=== PATIENT | male | born 1955 | race African-American/Black ===

== ENCOUNTER 2018-10-18 08:38 | Emergency (ER) | payer MEDICAID ==
[~2018-10-18] VITALS: Ht 175.3 cm; Wt 82.0 kg
[2018-10-18] MEDS ORDERED: ONDANSETRON HCL 4MG/2ML INJ IV ONE (10:30)
[2018-10-18] MEDS ORDERED: MORPHINE SULFATE 2 MG/ML CPJ (NOT FOR IM USE) IV ONE (10:30)
[2018-10-18] MEDS ORDERED: MORPHINE SULFATE 10 MG/ML CPJ IV NR (10:30)
[2018-10-18 11:15] LABS: BASOPHILS % 0.7 % (0.0-2.0); HEMATOCRIT. 34.5 % (42.0-52.0); HEMOGLOBIN. 11.3 g/dL (14.0-18.0); LYMPHOCYTES % 9.6 % (20.0-50.0); MEAN CORPUSCULAR HEMOGLOBIN 25.8 pg (28.0-32.0); MEAN CORPUSCULAR VOLUME 78.6 fL (80.0-94.0); MEAN PLATELET VOLUME 8.2 fl (7.4-10.4); MONOCYTES % 14.6 % (2.0-8.0); NEUTROPHILS % 75.1 % (40.0-76.0); PLATELET 242 x1000/uL (130-400); RED BLOOD CELL COUNT 4.39 mill/uL (4.7-6.1); RED CELL DISTRIBUTION WIDTH 13.4 % (11.6-14.6)
[2018-10-18 11:17] LABS: CHLORIDE 96 mEq/L (98-107); PROTHROMBIN TIME 10.1 sec (9.1-11.1)
[2018-10-18 13:21] LABS: CLARITY URINE CLEAR (CLEAR); COLOR URINE DARK YELLOW (YELLOW); KETONES URINE NEGATIVE (NEGATIVE); LEUKOCYTE ESTERASE URINE NEGATIVE (NEGATIVE); NITRITE URINE NEGATIVE (NEGATIVE); OCCULT BLOOD URINE NEGATIVE (NEGATIVE); PROTEIN URINE 2+ (NEGATIVE)
[2018-10-18 13:38] LABS: *AMPHETAMINES SCREEN URINE NEGATIVE (NEGATIVE); *BARBITURATES SCREEN URINE NEGATIVE (NEGATIVE); *BENZODIAZEPINES SCREEN URINE NEGATIVE (NEGATIVE); *COCAINE SCREEN URINE NEGATIVE (NEGATIVE); METHADONE URINE SCREEN NEGATIVE (NEGATIVE)
[2018-10-18 13:39] LABS: CANNABINOID URINE SCREEN PRESUMTIVE POSITIVE (NEGATIVE); OPIATES URINE SCREEN PRESUMTIVE POSITIVE (NEGATIVE); PHENCYCLIDINE URINE SCREEN NEGATIVE (NEGATIVE)
[2018-10-18] MEDS ORDERED: KETOROLAC 30MG/ML VIAL IV ONE (16:00)
[2018-10-18 16:22] VITALS: BP 129/78
== END 2018-10-18 17:11 | disposition home or self-care (01) ==
LOC: ER 08:38
DX: M25.461 Effusion, right knee (principal); M54.9 Dorsalgia, unspecified; I10 Essential (primary) hypertension; R56.9 Unspecified convulsions; Z95.0 Presence of cardiac pacemaker; Z86.19 Personal history of other infectious and parasitic diseases; Z86.73 Personal history of transient ischemic attack (TIA), and cerebral infarction without residual deficits
CPT/HCPCS: 36415; 73562; 74176; 76705; 80053; 80305; 81003; 83690; 85025; 85610; 93971; 96374; 96375; 99284; J1885; J2270; J2405

== ENCOUNTER 2019-03-09 07:57 | Inpatient (IN) | payer MEDICARE, MEDICAID ==
[~2019-03-09] VITALS: Ht 166.4 cm; Wt 68.0 kg
[2019-03-09 09:19] LABS: BASOPHILS % 1.3 % (0.0-2.0); EOSINOPHILS % 0.6 % (0.0-5.0); HEMATOCRIT. 31.6 % (42.0-52.0); HEMOGLOBIN. 10.1 g/dL (14.0-18.0); LYMPHOCYTES % 11.9 % (20.0-50.0); MEAN CORPUSCULAR HEMOGLOBIN 21.8 pg (28.0-32.0); MEAN CORPUSCULAR VOLUME 68.5 fL (80.0-94.0); MONOCYTES % 9.8 % (2.0-8.0); NEUTROPHILS % 76.4 % (40.0-76.0); PLATELET 236 x1000/uL (130-400); RED BLOOD CELL COUNT 4.61 mill/uL (4.7-6.1); RED CELL DISTRIBUTION WIDTH 19.6 % (11.6-14.6)
[2019-03-09 09:26] LABS: CHLORIDE 107 mEq/L (98-107)
[2019-03-09 10:13] LABS: PLATELET ESTIMATE NORMAL
[2019-03-09] MEDS ORDERED: MAGNESIUM/ALUMINUM HYDROXIDE/SIMETHICONE 30ML UDC PO PRN (11:45)
[2019-03-09] MEDS ORDERED: ONDANSETRON HCL 4MG/2ML INJ IV PRN (11:45)
[2019-03-09] MEDS ORDERED: GUAIFENESIN 200MG/10ML SUGAR FREE UDC PO PRN (11:45)
[2019-03-09] MEDS ORDERED: HYDROMORPHONE HCL/PF 2MG/ML CPJ IV PRN (11:45)
[2019-03-09] MEDS ORDERED: HYDROCODONE/ACETAMINOPHEN 5/325MG TABLET PO PRN (11:45)
[2019-03-09] MEDS ORDERED: CLONIDINE 0.1MG TABLET PO PRN (11:45)
[2019-03-09] MEDS ORDERED: LORAZEPAM 2MG/ML CPJ IV PRN (11:45)
[2019-03-09] MEDS ORDERED: IPRATROPIUM/ALBUTEROL 0.5-3(2.5)MG/3ML NEB INH PRN (11:45)
[2019-03-09] MEDS ORDERED: DIPHENHYDRAMINE 50MG/ML VIAL IV PRN (11:45)
[2019-03-09] MEDS ORDERED: DOCUSATE SODIUM 100MG CAPSULE PO PRN (11:45)
[2019-03-09 13:00] VITALS: BP 150/87
[2019-03-09] MEDS: ENOXAPARIN 40MG/0.4ML SYR SUBCUT SCH (13:30)
[2019-03-09] MEDS: ASPIRIN 81MG EC TABLET PO SCH (13:30)
[2019-03-09] MEDS ORDERED: NA PHOS,M-B/NA PHOS,DI-BA ENEMA 118ML PR PRN (13:30)
[2019-03-09 15:44] LABS: CHLORIDE 102 mEq/L (98-107)
[2019-03-09 16:00] VITALS: BP 154/90
[2019-03-09 20:00] VITALS: BP 132/77
[2019-03-10] VITALS: BP 145/79
[2019-03-10 04:00] VITALS: BP 131/80
[2019-03-10 06:15] LABS: BASOPHILS % 1.6 % (0.0-2.0); EOSINOPHILS % 1.2 % (0.0-5.0); HEMATOCRIT. 30.3 % (42.0-52.0); HEMOGLOBIN. 9.9 g/dL (14.0-18.0); LYMPHOCYTES % 22.1 % (20.0-50.0); MEAN CORPUSCULAR HEMOGLOBIN 22.4 pg (28.0-32.0); MEAN CORPUSCULAR VOLUME 68.5 fL (80.0-94.0); MEAN PLATELET VOLUME 8.8 fl (7.4-10.4); MONOCYTES % 11.5 % (2.0-8.0); NEUTROPHILS % 63.6 % (40.0-76.0); PLATELET 218 x1000/uL (130-400); RED BLOOD CELL COUNT 4.42 mill/uL (4.7-6.1); RED CELL DISTRIBUTION WIDTH 20.1 % (11.6-14.6)
[2019-03-10 08:00] VITALS: BP 135/82
[2019-03-10 08:31] LABS: CHLORIDE 102 mEq/L (98-107)
[2019-03-10] MEDS: ENOXAPARIN 40MG/0.4ML SYR SUBCUT SCH (09:00)
[2019-03-10] MEDS: ASPIRIN 81MG EC TABLET PO SCH (09:00)
[2019-03-10 09:09] LABS: T4 FREE 1.02 ng/dL (0.76-1.46)
[2019-03-10 09:13] LABS: CREATINE KINASE 132 IU/L (39-308); LDL CHOLESTEROL 74 mg/dL (5-100)
[2019-03-10 09:14] LABS: CREATINE KINASE MB FRACTION < 1.0 ng/mL (0.5-3.6)
[2019-03-10 09:17] LABS: HDL CHOLESTEROL 53 mg/dL (40-59)
[2019-03-10] MEDS ORDERED: POTASSIUM CHLORIDE 20MEQ TABLET SR PO NR (11:45)
[2019-03-10 12:00] VITALS: BP 129/85
[2019-03-10 16:00] VITALS: BP 141/89
[2019-03-10 20:04] VITALS: BP 141/93
[2019-03-10] MEDS: LEVETIRACETAM 500MG TABLET PO SCH (20:27)
[2019-03-11 00:03] VITALS: BP 150/86
[2019-03-11 04:00] VITALS: BP 141/87
[2019-03-11 06:16] LABS: HEMATOCRIT. 31.7 % (42.0-52.0); HEMOGLOBIN. 10.2 g/dL (14.0-18.0); MEAN CORPUSCULAR HEMOGLOBIN 22.1 pg (28.0-32.0); MEAN CORPUSCULAR VOLUME 69.1 fL (80.0-94.0); MEAN PLATELET VOLUME 8.8 fl (7.4-10.4); PLATELET 214 x1000/uL (130-400); RED CELL DISTRIBUTION WIDTH 19.2 % (11.6-14.6)
[2019-03-11 07:27] LABS: CHLORIDE 103 mEq/L (98-107)
[2019-03-11 08:00] VITALS: BP 137/85
[2019-03-11] MEDS: ASPIRIN 81MG EC TABLET PO SCH (08:51)
[2019-03-11] MEDS: ENOXAPARIN 40MG/0.4ML SYR SUBCUT SCH (08:52)
[2019-03-11] MEDS: LEVETIRACETAM 500MG TABLET PO SCH ×2 (08:52→20:32)
[2019-03-11 12:00] VITALS: BP_SYST 115; BP_SYST 120; BP_SYST 142; BP_DIAS 60; BP_DIAS 72; BP_DIAS 83
[2019-03-11] MEDS: AMLODIPINE 2.5MG TABLET PO SCH ×2 (12:09→20:32)
[2019-03-11 12:51] LABS: PLATELET ESTIMATE NORMAL
[2019-03-11 14:51] LABS: CLARITY URINE CLEAR (CLEAR); COLOR URINE YELLOW (YELLOW); KETONES URINE NEGATIVE (NEGATIVE); LEUKOCYTE ESTERASE URINE NEGATIVE (NEGATIVE); NITRITE URINE NEGATIVE (NEGATIVE); OCCULT BLOOD URINE NEGATIVE (NEGATIVE); PH URINE 6.5 (4.5-8.0); PROTEIN URINE 2+ (NEGATIVE); SPECIFIC GRAVITY URINE 1.019 (1.005-1.030)
[2019-03-11 15:17] LABS: OPIATES URINE SCREEN PRESUMTIVE POSITIVE (NEGATIVE)
[2019-03-11 15:18] LABS: *AMPHETAMINES SCREEN URINE NEGATIVE (NEGATIVE); *BARBITURATES SCREEN URINE NEGATIVE (NEGATIVE); *BENZODIAZEPINES SCREEN URINE NEGATIVE (NEGATIVE); *COCAINE SCREEN URINE NEGATIVE (NEGATIVE); CANNABINOID URINE SCREEN NEGATIVE (NEGATIVE); METHADONE URINE SCREEN NEGATIVE (NEGATIVE); PHENCYCLIDINE URINE SCREEN NEGATIVE (NEGATIVE)
[2019-03-11 20:00] VITALS: BP 145/80
[2019-03-11] MEDS: METOPROLOL TARTRATE 25MG TABLET PO SCH (20:33)
[2019-03-12] VITALS: BP 138/93
[2019-03-12 04:00] VITALS: BP 133/90
[2019-03-12 08:00] VITALS: BP 131/82
[2019-03-12] MEDS: ASPIRIN 81MG EC TABLET PO SCH (08:30)
[2019-03-12] MEDS: AMLODIPINE 2.5MG TABLET PO SCH (08:30)
[2019-03-12] MEDS: LEVETIRACETAM 500MG TABLET PO SCH (08:30)
[2019-03-12] MEDS: METOPROLOL TARTRATE 25MG TABLET PO SCH (08:31)
[2019-03-12] MEDS: ENOXAPARIN 40MG/0.4ML SYR SUBCUT SCH (08:32)
[2019-03-12 12:00] VITALS: BP 131/84
[2019-03-12 17:16] VITALS: BP 131/84
== END 2019-03-12 17:35 | disposition home or self-care (01) | DRG 52 ==
LOC: ER 07:57 → 8WST 10:08 → EDBEDREQ 10:13 → ENRESERV 11:07
PROVIDERS: ADMIT Internal Medicine; ATTEND Internal Medicine
PROC: 4A00X4Z Measurement of Central Nervous Electrical Activity, External Approach (ICD-10-PCS; principal; 2019-03-12)
PROC: 4B02XSZ Measurement of Cardiac Pacemaker, External Approach (ICD-10-PCS; 2019-03-12)
DX: G93.41 Metabolic encephalopathy (principal); I47.2 Ventricular tachycardia; I49.5 Sick sinus syndrome; I50.9 Heart failure, unspecified; I11.0 Hypertensive heart disease with heart failure; G40.409 Other generalized epilepsy and epileptic syndromes, not intractable, without status epilepticus; G90.8 Other disorders of autonomic nervous system; I25.10 Atherosclerotic heart disease of native coronary artery without angina pectoris; I69.351 Hemiplegia and hemiparesis following cerebral infarction affecting right dominant side; Z79.899 Other long term (current) drug therapy; Z95.0 Presence of cardiac pacemaker
CPT/HCPCS: 36415; 71045; 80048; 80061; 80305; 82550; 82553; 83735; 83880; 84439; 84443; 84484; 93005; 93306; 97162; 99285; J1650

== ENCOUNTER 2019-05-23 09:45 | Emergency (ER) | payer MEDICARE, MEDICAID ==
[~2019-05-23] VITALS: Ht 170.2 cm; Wt 80.0 kg
[2019-05-23 10:57] LABS: HEMATOCRIT. 28.4 % (42.0-52.0); HEMOGLOBIN. 9.2 g/dL (14.0-18.0); MEAN CORPUSCULAR HEMOGLOBIN 22.9 pg (28.0-32.0); MEAN CORPUSCULAR VOLUME 70.4 fL (80.0-94.0); MEAN PLATELET VOLUME 8.8 fl (7.4-10.4); PLATELET 270 x1000/uL (130-400); RED BLOOD CELL COUNT 4.03 mill/uL (4.7-6.1); RED CELL DISTRIBUTION WIDTH 21.4 % (11.6-14.6)
[2019-05-23] MEDS ORDERED: ACETAMINOPHEN 325MG TABLET PO ONE (11:00)
[2019-05-23] MEDS ORDERED: IBUPROFEN 800MG TABLET PO ONE (11:00)
[2019-05-23 11:03] LABS: CHLORIDE 97 mEq/L (98-107)
[2019-05-23 11:05] LABS: CLARITY URINE CLEAR (CLEAR); COLOR URINE YELLOW (YELLOW); KETONES URINE NEGATIVE (NEGATIVE); LEUKOCYTE ESTERASE URINE NEGATIVE (NEGATIVE); NITRITE URINE NEGATIVE (NEGATIVE); OCCULT BLOOD URINE NEGATIVE (NEGATIVE); PH URINE 6.5 (4.5-8.0); PROTEIN URINE 2+ (NEGATIVE); SPECIFIC GRAVITY URINE 1.011 (1.005-1.030)
[2019-05-23 12:04] LABS: PLATELET ESTIMATE NORMAL
[2019-05-23] MEDS ORDERED: PREDNISONE 20MG TABLET PO SCH (12:40)
[2019-05-23 13:52] VITALS: BP 132/68
== END 2019-05-23 13:54 | disposition home or self-care (01) ==
LOC: ER 09:45
DX: M10.9 Gout, unspecified (principal); I11.9 Hypertensive heart disease without heart failure; R56.9 Unspecified convulsions; Z95.0 Presence of cardiac pacemaker; Z86.19 Personal history of other infectious and parasitic diseases
CPT/HCPCS: 36415; 71045; 80053; 81003; 85025; 87086; 99284; J7512

== ENCOUNTER 2020-01-08 09:37 | Emergency (ER) | payer MEDICARE, MEDICAID ==
[~2020-01-08] VITALS: Ht 175.3 cm; Wt 74.0 kg
[2020-01-08] MEDS ORDERED: KETOROLAC 60MG/2ML VIAL IM ONE (10:45)
[2020-01-08 11:44] VITALS: BP 140/80
== END 2020-01-08 11:50 | disposition home or self-care (01) ==
LOC: ER 09:37
DX: R07.81 Pleurodynia (principal); M54.9 Dorsalgia, unspecified; M25.511 Pain in right shoulder; M10.9 Gout, unspecified; I11.9 Hypertensive heart disease without heart failure; Z95.0 Presence of cardiac pacemaker
CPT/HCPCS: 96372; 99283; J1885

== ENCOUNTER 2020-02-18 05:10 | Inpatient (IN) | payer MEDICARE, MEDICAID ==
[~2020-02-18] VITALS: Ht 185.4 cm; Wt 79.4 kg
[2020-02-18] MEDS ORDERED: ACETAMINOPHEN 325MG TABLET PO STA (05:19)
[2020-02-18] MEDS ORDERED: LEVETIRACETAM 500MG PREMIX 100 ML IV ONE (06:30)
[2020-02-18 06:50] LABS: BASOPHILS % 0.9 % (0.0-2.0); EOSINOPHILS % 0.2 % (0.0-5.0); HEMATOCRIT. 34.3 % (42.0-52.0); HEMOGLOBIN. 11.2 g/dL (14.0-18.0); LYMPHOCYTES % 14.5 % (20.0-50.0); MEAN CORPUSCULAR HEMOGLOBIN 24.8 pg (28.0-32.0); MEAN CORPUSCULAR VOLUME 75.9 fL (80.0-94.0); MONOCYTES % 11.6 % (2.0-8.0); NEUTROPHILS % 72.8 % (40.0-76.0); PLATELET 177 x1000/uL (130-400); RED BLOOD CELL COUNT 4.52 mill/uL (4.7-6.1); RED CELL DISTRIBUTION WIDTH 16.3 % (11.6-14.6)
[2020-02-18 06:57] LABS: CHLORIDE 108 mEq/L (98-107)
[2020-02-18 07:06] LABS: C REACTIVE PROTEIN QUANT 4.1 mg/L (0.0-3.0)
[2020-02-18 07:09] LABS: CREATINE KINASE 158 IU/L (39-308)
[2020-02-18 07:28] LABS: D-DIMER 1.21 mg/L FEU (<0.50); PROTHROMBIN TIME 10.7 sec (9.6-11.0)
[2020-02-18] MEDS ORDERED: LORAZEPAM 2MG/ML CPJ IV PRN (11:00)
[2020-02-18] MEDS ORDERED: BENZONATATE 100MG CAPSULE PO PRN (11:00)
[2020-02-18] MEDS ORDERED: CEFTRIAXONE 1 G PREMIX 50 ML IV NR (11:45)
[2020-02-18] MEDS: ACETAMINOPHEN 325MG TABLET PO PRN ×2 (15:07→22:08)
[2020-02-18 16:00] VITALS: BP 152/90
[2020-02-18] MEDS ORDERED: AZITHROMYCIN 500 MG TABLET PO NR (16:00)
[2020-02-18] MEDS ORDERED: POTASSIUM CHLORIDE 20MEQ TABLET SR PO NR (16:00)
[2020-02-18] MEDS: THIAMINE HCL 100MG TABLET PO SCH (18:24)
[2020-02-18] MEDS: ENOXAPARIN 40MG/0.4ML SYR SUBCUT SCH (18:27)
[2020-02-18 20:00] VITALS: BP 161/98
[2020-02-18] MEDS: ASCORBIC ACID 500 MG TABLET PO SCH (22:08)
[2020-02-18] MEDS: LEVETIRACETAM 500MG TABLET PO SCH (22:08)
[2020-02-18] MEDS: AMLODIPINE 5MG TABLET PO SCH (22:09)
[2020-02-19] VITALS (7 sets, daily range): BP systolic 134–162; BP diastolic 88–97
[2020-02-19] MEDS: ACETAMINOPHEN 325MG TABLET PO PRN ×4 (04:37→23:19)
[2020-02-19] MEDS: ZINC SULFATE 220 MG ( 50 ) CAPSULE PO SCH (08:34)
[2020-02-19] MEDS: LEVETIRACETAM 500MG TABLET PO SCH ×2 (08:34→21:14)
[2020-02-19] MEDS: ASCORBIC ACID 500 MG TABLET PO SCH ×2 (08:34→21:14)
[2020-02-19] MEDS: THIAMINE HCL 100MG TABLET PO SCH ×2 (08:35→16:36)
[2020-02-19] MEDS: AZITHROMYCIN 250 MG TABLET PO SCH (08:35)
[2020-02-19] MEDS: AMLODIPINE 5MG TABLET PO SCH ×2 (08:50→21:14)
[2020-02-19] MEDS ORDERED: CEFTRIAXONE 1 G PREMIX 50 ML IV SCH (11:00)
[2020-02-19] MEDS ORDERED: LOSARTAN POTASSIUM 50 MG TABLET PO SCH (14:00)
[2020-02-19] MEDS ORDERED: LOSA100T32 MT (15:12)
[2020-02-19] MEDS ORDERED: KEPP500 MT (15:12)
[2020-02-19] MEDS ORDERED: AZIT250T12 MT (15:12)
[2020-02-19] MEDS: ENOXAPARIN 40MG/0.4ML SYR SUBCUT SCH (16:36)
[2020-02-20 04:00] VITALS: BP 140/86
[2020-02-20] MEDS: ACETAMINOPHEN 325MG TABLET PO PRN ×3 (05:26→20:53)
[2020-02-20 08:00] VITALS: BP_SYST 145; BP_SYST 155; BP_DIAS 89; BP_DIAS 92
[2020-02-20] MEDS: THIAMINE HCL 100MG TABLET PO SCH ×2 (10:07→17:31)
[2020-02-20] MEDS: AMLODIPINE 5MG TABLET PO SCH ×2 (10:07→20:53)
[2020-02-20] MEDS: LEVETIRACETAM 500MG TABLET PO SCH ×2 (10:08→20:53)
[2020-02-20] MEDS: LOSARTAN POTASSIUM 50 MG TABLET PO SCH (10:08)
[2020-02-20] MEDS: ASCORBIC ACID 500 MG TABLET PO SCH ×2 (10:09→20:54)
[2020-02-20] MEDS: AZITHROMYCIN 250 MG TABLET PO SCH (10:09)
[2020-02-20] MEDS: ZINC SULFATE 220 MG ( 50 ) CAPSULE PO SCH (10:09)
[2020-02-20] MEDS: CEFTRIAXONE 1 G PREMIX 50 ML IV SCH (10:13)
[2020-02-20 10:29] LABS: BASOPHILS % 0.4 % (0.0-2.0); HEMATOCRIT. 34.9 % (42.0-52.0); HEMOGLOBIN. 11.7 g/dL (14.0-18.0); MEAN CORPUSCULAR VOLUME 74.5 fL (80.0-94.0); MEAN PLATELET VOLUME 9.4 fl (7.4-10.4); MONOCYTES % 8.5 % (2.0-8.0); NEUTROPHILS % 78.1 % (40.0-76.0); PLATELET 183 x1000/uL (130-400); RED BLOOD CELL COUNT 4.68 mill/uL (4.7-6.1); RED CELL DISTRIBUTION WIDTH 16.6 % (11.6-14.6)
[2020-02-20 10:32] LABS: CHLORIDE 102 mEq/L (98-107)
[2020-02-20 12:00] VITALS: BP 155/89
[2020-02-20] MEDS ORDERED: POTASSIUM CHLORIDE 20MEQ TABLET SR PO NR (12:15)
[2020-02-20] MEDS ORDERED: VANCOMYCIN 1500MG in DEXTROSE 5% WATER 250ML IV SCH (14:00)
[2020-02-20] MEDS: COLCHICINE 0.6MG TABLET PO SCH (14:38)
[2020-02-20 16:00] VITALS: BP 159/93
[2020-02-20] MEDS: ENOXAPARIN 40MG/0.4ML SYR SUBCUT SCH (17:31)
[2020-02-20 20:00] VITALS: BP 144/89
[2020-02-21] VITALS: BP 135/84
[2020-02-21] MEDS: VANCOMYCIN 1250MG in DEXTROSE 5% WATER 250ML IV SCH ×2 (02:09→13:09)
[2020-02-21] MEDS: ACETAMINOPHEN 325MG TABLET PO PRN ×3 (03:07→20:34)
[2020-02-21 04:00] VITALS: BP 121/82
[2020-02-21 08:00] VITALS: BP 144/88
[2020-02-21] MEDS: ASCORBIC ACID 500 MG TABLET PO SCH ×2 (09:37→20:34)
[2020-02-21] MEDS: THIAMINE HCL 100MG TABLET PO SCH ×2 (09:38→16:09)
[2020-02-21] MEDS: COLCHICINE 0.6MG TABLET PO SCH (09:38)
[2020-02-21] MEDS: LEVETIRACETAM 500MG TABLET PO SCH ×2 (09:39→20:35)
[2020-02-21] MEDS: AMLODIPINE 5MG TABLET PO SCH ×2 (09:39→20:35)
[2020-02-21] MEDS: ZINC SULFATE 220 MG ( 50 ) CAPSULE PO SCH (09:39)
[2020-02-21] MEDS: AZITHROMYCIN 250 MG TABLET PO SCH (09:39)
[2020-02-21] MEDS: LOSARTAN POTASSIUM 50 MG TABLET PO SCH (09:39)
[2020-02-21] MEDS: CEFTRIAXONE 1 G PREMIX 50 ML IV SCH (10:56)
[2020-02-21 12:00] VITALS: BP 106/81
[2020-02-21 16:00] VITALS: BP 152/95
[2020-02-21] MEDS: ENOXAPARIN 40MG/0.4ML SYR SUBCUT SCH (16:09)
[2020-02-21 18:07] LABS: *AMPHETAMINES SCREEN URINE NEGATIVE (NEGATIVE); CANNABINOID URINE SCREEN PRESUMTIVE POSITIVE (NEGATIVE); OPIATES URINE SCREEN NEGATIVE (NEGATIVE); PHENCYCLIDINE URINE SCREEN NEGATIVE (NEGATIVE)
[2020-02-21 18:12] LABS: METHADONE URINE SCREEN NEGATIVE (NEGATIVE)
[2020-02-21 18:13] LABS: *COCAINE SCREEN URINE NEGATIVE (NEGATIVE)
[2020-02-21 18:14] LABS: *BARBITURATES SCREEN URINE NEGATIVE (NEGATIVE); *BENZODIAZEPINES SCREEN URINE NEGATIVE (NEGATIVE)
[2020-02-21 20:00] VITALS: BP 143/88
[2020-02-22] VITALS: BP 119/79
[2020-02-22 04:00] VITALS: BP 120/69
[2020-02-22 08:00] VITALS: BP 148/91
[2020-02-22 08:41] LABS: CHLORIDE 102 mEq/L (98-107)
[2020-02-22] MEDS ORDERED: VANCOMYCIN 1250MG in DEXTROSE 5% WATER 250ML IV SCH (09:00)
[2020-02-22] MEDS: AMLODIPINE 5MG TABLET PO SCH ×2 (09:10→22:24)
[2020-02-22] MEDS: ZINC SULFATE 220 MG ( 50 ) CAPSULE PO SCH (09:10)
[2020-02-22] MEDS: AZITHROMYCIN 250 MG TABLET PO SCH (09:10)
[2020-02-22] MEDS: ASCORBIC ACID 500 MG TABLET PO SCH ×2 (09:10→22:24)
[2020-02-22] MEDS: COLCHICINE 0.6MG TABLET PO SCH (09:11)
[2020-02-22] MEDS: LEVETIRACETAM 500MG TABLET PO SCH ×2 (09:11→22:24)
[2020-02-22] MEDS: THIAMINE HCL 100MG TABLET PO SCH ×2 (09:11→17:40)
[2020-02-22] MEDS: ACETAMINOPHEN 325MG TABLET PO PRN (09:13)
[2020-02-22] MEDS: LOSARTAN POTASSIUM 50 MG TABLET PO SCH (09:16)
[2020-02-22] MEDS: CEFTRIAXONE 1 G PREMIX 50 ML IV SCH (10:03)
[2020-02-22 12:00] VITALS: BP 137/85
[2020-02-22 16:00] VITALS: BP 153/93
[2020-02-22] MEDS: ENOXAPARIN 40MG/0.4ML SYR SUBCUT SCH (17:40)
[2020-02-22] MEDS ORDERED: IOHEXOL-300 100 ML BOTTLE ONE (17:57)
[2020-02-22 18:16] LABS: HEMATOCRIT. 29.4 % (42.0-52.0); HEMOGLOBIN. 9.8 g/dL (14.0-18.0); MEAN CORPUSCULAR HEMOGLOBIN 25.1 pg (28.0-32.0); MEAN CORPUSCULAR VOLUME 75.4 fL (80.0-94.0); MEAN PLATELET VOLUME 8.8 fl (7.4-10.4); PLATELET 196 x1000/uL (130-400); RED CELL DISTRIBUTION WIDTH 16.3 % (11.6-14.6)
[2020-02-22 19:14] LABS: PLATELET ESTIMATE NORMAL
[2020-02-22 20:00] VITALS: BP 159/92
[2020-02-23] VITALS: BP 163/92
[2020-02-23] MEDS ORDERED: CLONIDINE 0.1MG TABLET PO PRN (01:15)
[2020-02-23 04:00] VITALS: BP 117/77
[2020-02-23 05:01] LABS: CLARITY URINE CLEAR (CLEAR); COLOR URINE YELLOW (YELLOW); KETONES URINE NEGATIVE (NEGATIVE); LEUKOCYTE ESTERASE URINE NEGATIVE (NEGATIVE); NITRITE URINE NEGATIVE (NEGATIVE); OCCULT BLOOD URINE NEGATIVE (NEGATIVE); PH URINE 6.5 (4.5-8.0); PROTEIN URINE 2+ (NEGATIVE); SPECIFIC GRAVITY URINE 1.024 (1.005-1.030)
[2020-02-23 08:00] VITALS: BP 121/87
[2020-02-23] MEDS: THIAMINE HCL 100MG TABLET PO SCH (09:10)
[2020-02-23] MEDS: ZINC SULFATE 220 MG ( 50 ) CAPSULE PO SCH (09:10)
[2020-02-23] MEDS: COLCHICINE 0.6MG TABLET PO SCH (09:11)
[2020-02-23] MEDS: AMLODIPINE 5MG TABLET PO SCH (09:11)
[2020-02-23] MEDS: LEVETIRACETAM 500MG TABLET PO SCH (09:11)
[2020-02-23] MEDS: LOSARTAN POTASSIUM 50 MG TABLET PO SCH (09:11)
[2020-02-23] MEDS: ASCORBIC ACID 500 MG TABLET PO SCH (09:19)
[2020-02-23] MEDS: ACETAMINOPHEN 325MG TABLET PO PRN (09:20)
[2020-02-23] MEDS: CEFTRIAXONE 1 G PREMIX 50 ML IV SCH (11:23)
[2020-02-23] MEDS ORDERED: COLC0.6C3 MT (11:48)
[2020-02-23 12:00] VITALS: BP 131/78
[2020-02-23 12:41] VITALS: BP 111/67
== END 2020-02-23 15:21 | disposition home or self-care (01) | DRG 720 ==
LOC: ER 05:22 → EDBEDREQTM 05:54 → EDBEDREQ 05:54 → EDBEDREQSVC 05:54 → ENRESERV 13:38 → 7WST 15:56 → 6EST 02-19 23:54
PROVIDERS: ADMIT Internal Medicine; ATTEND Internal Medicine
PROC: 4A10X4Z Monitoring of Central Nervous Electrical Activity, External Approach (ICD-10-PCS; principal; 2020-02-23)
DX: A41.9 Sepsis, unspecified organism (principal); J12.9 Viral pneumonia, unspecified; E87.8 Other disorders of electrolyte and fluid balance, not elsewhere classified; I69.30 Unspecified sequelae of cerebral infarction; J44.9 Chronic obstructive pulmonary disease, unspecified; D64.9 Anemia, unspecified; E87.6 Hypokalemia; G40.909 Epilepsy, unspecified, not intractable, without status epilepticus; J06.9 Acute upper respiratory infection, unspecified; M10.9 Gout, unspecified; Z20.828 Contact with and (suspected) exposure to other viral communicable diseases; M94.0 Chondrocostal junction syndrome [Tietze]; J40 Bronchitis, not specified as acute or chronic; R62.7 Adult failure to thrive; D72.810 Lymphocytopenia; D72.819 Decreased white blood cell count, unspecified; I10 Essential (primary) hypertension; R74.0 Nonspecific elevation of levels of transaminase and lactic acid dehydrogenase [LDH]; T14.90XA Injury, unspecified, initial encounter; W18.30XA Fall on same level, unspecified, initial encounter; Y93.89 Activity, other specified; Y92.89 Other specified places as the place of occurrence of the external cause; Y99.8 Other external cause status; Z95.0 Presence of cardiac pacemaker; Z87.891 Personal history of nicotine dependence; Z68.23 Body mass index [BMI] 23.0-23.9, adult
CPT/HCPCS: 36415; 71045; 71260; 73070; 73100; 74177; 76700; 80048; 80053; 80076; 80185; 80202; 80305; 81003; 82542; 82550; 82728; 82962; 83605; 83615; 83880; 84145; 84484; 84550; 85025; 85379; 86140; 86850; 86900; 87077; 87635; 87804; 93005; 93306; 95816; 97116; 97162; 99291; J0696; J1650; J1953; J3370; J7060; Q9967

== ENCOUNTER 2020-07-24 09:23 | Inpatient (IN) | payer MEDICARE, MEDICAID ==
[~2020-07-24] VITALS: Ht 177.8 cm; Wt 71.7 kg
[~2020-07-24 09:23] MED LIST: AZIT250T12 MT; COLC0.6C3 MT; KEPP500 MT; LOSA100T32 MT
[2020-07-24] MEDS ORDERED: LEVETIRACETAM 500MG PREMIX 100 ML IV ONE (10:00)
[2020-07-24 10:09] LABS: BASOPHILS % 2.3 % (0.0-2.0); EOSINOPHILS % 1.3 % (0.0-5.0); HEMOGLOBIN. 12.7 g/dL (14.0-18.0); LYMPHOCYTES % 38.6 % (20.0-50.0); MEAN CORPUSCULAR HEMOGLOBIN 25.9 pg (28.0-32.0); MEAN CORPUSCULAR VOLUME 81.8 fL (80.0-94.0); MEAN PLATELET VOLUME 9.5 fl (7.4-10.4); MONOCYTES % 10.9 % (2.0-8.0); NEUTROPHILS % 46.9 % (40.0-76.0); PLATELET 180 x1000/uL (130-400); RED BLOOD CELL COUNT 4.89 mill/uL (4.7-6.1); RED CELL DISTRIBUTION WIDTH 14.1 % (11.6-14.6)
[2020-07-24 10:12] LABS: CHLORIDE 108 mEq/L (98-107)
[2020-07-24] MEDS ORDERED: SODIUM CHLORIDE 0.9% 1,000 ML IV ONE (10:58)
[2020-07-24] MEDS ORDERED: PHENYTOIN SODIUM EXTENDED 100MG CAPSULE PO ONE (11:00)
[2020-07-24 11:07] LABS: CLARITY URINE CLEAR (CLEAR); COLOR URINE YELLOW (YELLOW); KETONES URINE NEGATIVE (NEGATIVE); LEUKOCYTE ESTERASE URINE NEGATIVE (NEGATIVE); NITRITE URINE NEGATIVE (NEGATIVE); OCCULT BLOOD URINE 1+ (NEGATIVE); PH URINE 5.5 (4.5-8.0); PROTEIN URINE 3+ (NEGATIVE); SPECIFIC GRAVITY URINE 1.016 (1.005-1.030); UROBILINOGEN URINE 0.2 E.U./dL (0.2-1.0)
[2020-07-24 11:14] LABS: ETHANOL BLOOD 13 mg/dL
[2020-07-24 11:27] LABS: *AMPHETAMINES SCREEN URINE NEGATIVE (NEGATIVE); *BARBITURATES SCREEN URINE NEGATIVE (NEGATIVE); *BENZODIAZEPINES SCREEN URINE NEGATIVE (NEGATIVE); *COCAINE SCREEN URINE NEGATIVE (NEGATIVE)
[2020-07-24 11:28] LABS: CANNABINOID URINE SCREEN PRESUMTIVE POSITIVE (NEGATIVE); METHADONE URINE SCREEN NEGATIVE (NEGATIVE); OPIATES URINE SCREEN NEGATIVE (NEGATIVE); PHENCYCLIDINE URINE SCREEN NEGATIVE (NEGATIVE)
[2020-07-24] MEDS ORDERED: AZITHROMYCIN 500 MG in DEXT 5% WATER 250 ML IV ONE (12:00)
[2020-07-24] MEDS ORDERED: CEFTRIAXONE 1 G PREMIX 50 ML IV ONE (12:00)
[2020-07-24] MEDS ORDERED: SODIUM CHLORIDE 0.9% 1000ML BAG (SEPSIS BOLUS) IV ONE (12:00)
[2020-07-24 13:42] LABS: BG BASE EXCESS -9.2 mmol/L (-2.0-2.0); BG CARBOXYHEMOGLOBIN 0.6 % (0.5-1.5); BG DEOXYHEMOGLOBIN 2.6 % (0.0-5.0); BG FRACTION INSPIRED OXYGEN 21; BG HCO3 ACT 14.8 mmol/L (22.0-26.0); BG METHEMOGLOBIN 0.2 % (0.0-1.5); BG OXYGEN SATURATION 97.4 % (92.0-98.5); BG OXYHEMOGLOBIN 96.6 % (94.0-97.0); BG PCO2 26.9 mmHg (35.0-45.0); BG PH 7.358 (7.350-7.450); BG PO2 102.1 mmHg (75.0-100.0); BG SAMPLE SITE RIGHT RADIAL; BG TOTAL HEMOGLOBIN 11.9 g/dL (12.0-18.0); BG VENT MODE ROOM AIR
[2020-07-24 14:30] VITALS: BP 177/89
[2020-07-24 14:58] VITALS: BP 177/89
[2020-07-24] MEDS ORDERED: LORAZEPAM 2MG/ML CPJ IV PRN ×2 (15:00→15:15)
[2020-07-24 16:00] VITALS: BP 170/85
[2020-07-24] MEDS: CLONIDINE 0.1MG TABLET PO PRN (16:25)
[2020-07-24] MEDS: LORAZEPAM 2MG/ML CPJ IV PRN (16:26)
[2020-07-24] MEDS ORDERED: ACETAMINOPHEN 325MG TABLET PO PRN (19:30)
[2020-07-24] MEDS ORDERED: MAGNESIUM/ALUMINUM HYDROXIDE/SIMETHICONE 30ML UDC PO PRN (19:30)
[2020-07-24] MEDS ORDERED: DOCUSATE SODIUM 100MG CAPSULE PO PRN (19:30)
[2020-07-24] MEDS ORDERED: ONDANSETRON HCL 4MG/2ML INJ IV PRN (19:30)
[2020-07-24 20:00] VITALS: BP 139/97
[2020-07-24] MEDS: ENOXAPARIN 40MG/0.4ML SYR SUBCUT SCH (21:01)
[2020-07-24] MEDS: SODIUM CHLORIDE 0.9% 1,000 ML IV SCH (21:01)
[2020-07-24] MEDS: LEVETIRACETAM 500MG/5ML CUP PO SCH (21:01)
[2020-07-24 21:51] LABS: CREATINE KINASE 202 IU/L (39-308)
[2020-07-24 23:08] LABS: BG BASE EXCESS -7.6 mmol/L (-2.0-2.0); BG CARBOXYHEMOGLOBIN 0.5 % (0.5-1.5); BG DEOXYHEMOGLOBIN 3.9 % (0.0-5.0); BG FRACTION INSPIRED OXYGEN 21; BG HCO3 ACT 16.8 mmol/L (22.0-26.0); BG METHEMOGLOBIN 0.2 % (0.0-1.5); BG OXYGEN SATURATION 96.1 % (92.0-98.5); BG OXYHEMOGLOBIN 95.4 % (94.0-97.0); BG PCO2 30.3 mmHg (35.0-45.0); BG PH 7.361 (7.350-7.450); BG PO2 90.3 mmHg (75.0-100.0); BG VENT MODE ROOM AIR
[2020-07-25] VITALS: BP 152/82
[2020-07-25 04:00] VITALS: BP 164/90
[2020-07-25] MEDS: CLONIDINE 0.1MG TABLET PO PRN (04:08)
[2020-07-25 07:46] LABS: BASOPHILS % 0.9 % (0.0-2.0); HEMATOCRIT. 33.1 % (42.0-52.0); HEMOGLOBIN. 10.7 g/dL (14.0-18.0); LYMPHOCYTES % 31.6 % (20.0-50.0); MEAN CORPUSCULAR HEMOGLOBIN 25.5 pg (28.0-32.0); MEAN CORPUSCULAR VOLUME 78.7 fL (80.0-94.0); MEAN PLATELET VOLUME 9.6 fl (7.4-10.4); MONOCYTES % 12.6 % (2.0-8.0); NEUTROPHILS % 53.9 % (40.0-76.0); PLATELET 111 x1000/uL (130-400); RED BLOOD CELL COUNT 4.21 mill/uL (4.7-6.1)
[2020-07-25 08:00] VITALS: BP 150/113
[2020-07-25 08:10] LABS: CHLORIDE 112 mEq/L (98-107)
[2020-07-25 08:17] LABS: PHOSPHORUS 2.3 mg/dL (2.5-4.9)
[2020-07-25 08:18] LABS: HDL CHOLESTEROL 38 mg/dL (40-59); LDL CHOLESTEROL 42 mg/dL (5-100)
[2020-07-25 08:19] LABS: CREATINE KINASE 189 IU/L (39-308); T4 FREE 0.97 ng/dL (0.76-1.46)
[2020-07-25] MEDS: PANTOPRAZOLE SODIUM 40 MG/VIAL IV SCH (08:42)
[2020-07-25] MEDS: SODIUM CHLORIDE 0.9% 1,000 ML IV SCH ×2 (08:42→22:25)
[2020-07-25] MEDS: MULTIVITAMINS,THER W-MINERALS TABLET PO SCH (08:43)
[2020-07-25] MEDS ORDERED: POTASSIUM CHLORIDE 20MEQ/PACKET PO NR (08:45)
[2020-07-25] MEDS: LEVETIRACETAM 500MG/5ML CUP PO SCH ×2 (08:47→21:22)
[2020-07-25 12:00] VITALS: BP 128/77
[2020-07-25] MEDS ORDERED: MAGNESIUM 2 G PREMIX 50 ML IV NR (13:00)
[2020-07-25] MEDS ORDERED: POTASSIUM PHOS,M-BASIC-D-BASIC 15 MMOL in DEXT 5% WATER 245 ML IV NR (13:00)
[2020-07-25] MEDS: PHENYTOIN SODIUM EXTENDED 100MG CAPSULE PO SCH ×2 (14:12→21:22)
[2020-07-25 16:00] VITALS: BP 153/93
[2020-07-25] MEDS ORDERED: PHENYTOIN SODIUM EXTENDED 100MG CAPSULE PO NR (16:15)
[2020-07-25 18:34] LABS: CREATINE KINASE 180 IU/L (39-308)
[2020-07-25 20:00] VITALS: BP 155/95
[2020-07-25] MEDS: ENOXAPARIN 40MG/0.4ML SYR SUBCUT SCH (21:22)
[2020-07-26] VITALS: BP 150/90
[2020-07-26] MEDS: LORAZEPAM 2MG/ML CPJ IV PRN ×2 (00:17→21:07)
[2020-07-26 04:00] VITALS: BP_SYST 149; BP_DIAS 84; BP_DIAS 89
[2020-07-26] MEDS: PHENYTOIN SODIUM EXTENDED 100MG CAPSULE PO SCH ×3 (06:13→21:07)
[2020-07-26 06:35] LABS: EOSINOPHILS % 1.5 % (0.0-5.0); HEMATOCRIT. 31.9 % (42.0-52.0); HEMOGLOBIN. 10.6 g/dL (14.0-18.0); LYMPHOCYTES % 32.9 % (20.0-50.0); MEAN PLATELET VOLUME 9.5 fl (7.4-10.4); MONOCYTES % 11.7 % (2.0-8.0); NEUTROPHILS % 52.9 % (40.0-76.0); PLATELET 107 x1000/uL (130-400); RED BLOOD CELL COUNT 4.09 mill/uL (4.7-6.1); RED CELL DISTRIBUTION WIDTH 13.9 % (11.6-14.6)
[2020-07-26 06:39] LABS: CHLORIDE 110 mEq/L (98-107)
[2020-07-26 06:50] LABS: PHOSPHORUS 2.3 mg/dL (2.5-4.9)
[2020-07-26 08:00] VITALS: BP 93/61
[2020-07-26] MEDS: LEVETIRACETAM 500MG/5ML CUP PO SCH ×2 (08:15→21:09)
[2020-07-26] MEDS: MULTIVITAMINS,THER W-MINERALS TABLET PO SCH (08:15)
[2020-07-26] MEDS: PANTOPRAZOLE SODIUM 40 MG/VIAL IV SCH (08:15)
[2020-07-26] MEDS: CLONIDINE 0.1MG TABLET PO PRN (08:25)
[2020-07-26] MEDS ORDERED: POTASSIUM CHLORIDE 20MEQ/PACKET PO SCH (09:15)
[2020-07-26] MEDS ORDERED: SODIUM PHOS,M-BASIC-D-BASIC 20 MM in DEXT 5% WATER 243.3333 ML IV SCH (11:00)
[2020-07-26] MEDS ORDERED: MAGNESIUM 4 G PREMIX 100 ML IV SCH (11:00)
[2020-07-26 12:00] VITALS: BP 130/66
[2020-07-26] MEDS: SODIUM CHLORIDE 0.9% 1,000 ML IV SCH (13:14)
[2020-07-26] MEDS ORDERED: POTASSIUM CHLORIDE 20MEQ TABLET SR PO NR (14:00)
[2020-07-26 16:00] VITALS: BP 126/60
[2020-07-26 20:00] VITALS: BP 174/86
[2020-07-26] MEDS: ENOXAPARIN 40MG/0.4ML SYR SUBCUT SCH (21:09)
[2020-07-27] VITALS: BP 168/84
[2020-07-27] MEDS: SODIUM CHLORIDE 0.9% 1,000 ML IV SCH (01:36)
[2020-07-27 04:00] VITALS: BP 164/86
[2020-07-27] MEDS: CLONIDINE 0.1MG TABLET PO PRN (05:34)
[2020-07-27] MEDS: PHENYTOIN SODIUM EXTENDED 100MG CAPSULE PO SCH ×3 (05:34→21:23)
[2020-07-27 06:14] LABS: CHLORIDE 109 mEq/L (98-107)
[2020-07-27 06:22] LABS: PHOSPHORUS 3.2 mg/dL (2.5-4.9)
[2020-07-27 06:52] LABS: BASOPHILS % 0.7 % (0.0-2.0); EOSINOPHILS % 1.3 % (0.0-5.0); HEMOGLOBIN. 10.6 g/dL (14.0-18.0); LYMPHOCYTES % 19.6 % (20.0-50.0); MEAN CORPUSCULAR HEMOGLOBIN 26.2 pg (28.0-32.0); MEAN CORPUSCULAR VOLUME 79.1 fL (80.0-94.0); MONOCYTES % 13.5 % (2.0-8.0); NEUTROPHILS % 64.9 % (40.0-76.0); PLATELET 96 x1000/uL (130-400); RED BLOOD CELL COUNT 4.05 mill/uL (4.7-6.1); RED CELL DISTRIBUTION WIDTH 13.6 % (11.6-14.6)
[2020-07-27 08:00] VITALS: BP 158/99
[2020-07-27] MEDS: LEVETIRACETAM 500MG/5ML CUP PO SCH ×2 (08:19→21:23)
[2020-07-27] MEDS: MULTIVITAMINS,THER W-MINERALS TABLET PO SCH (08:19)
[2020-07-27] MEDS: PANTOPRAZOLE SODIUM 40 MG/VIAL IV SCH (08:19)
[2020-07-27] MEDS: AMLODIPINE 2.5MG TABLET PO SCH (11:13)
[2020-07-27] MEDS: HYDROCODONE/ACETAMINOPHEN 5/325MG TABLET PO PRN ×2 (11:23→18:38)
[2020-07-27 12:00] VITALS: BP_SYST 142; BP_SYST 95; BP_DIAS 51; BP_DIAS 80
[2020-07-27 16:00] VITALS: BP 161/91
[2020-07-27 20:00] VITALS: BP 143/93
[2020-07-27] MEDS: ENOXAPARIN 40MG/0.4ML SYR SUBCUT SCH (21:37)
[2020-07-28] VITALS: BP 144/84
[2020-07-28 04:00] VITALS: BP 155/98
[2020-07-28] MEDS: PHENYTOIN SODIUM EXTENDED 100MG CAPSULE PO SCH ×2 (06:04→14:02)
[2020-07-28 06:39] LABS: BASOPHILS % 0.7 % (0.0-2.0); EOSINOPHILS % 1.6 % (0.0-5.0); HEMATOCRIT. 32.7 % (42.0-52.0); HEMOGLOBIN. 10.9 g/dL (14.0-18.0); LYMPHOCYTES % 22.3 % (20.0-50.0); MEAN CORPUSCULAR HEMOGLOBIN 25.9 pg (28.0-32.0); MONOCYTES % 13.6 % (2.0-8.0); NEUTROPHILS % 61.8 % (40.0-76.0); PLATELET 115 x1000/uL (130-400); RED BLOOD CELL COUNT 4.19 mill/uL (4.7-6.1); RED CELL DISTRIBUTION WIDTH 13.6 % (11.6-14.6)
[2020-07-28 06:41] LABS: CHLORIDE 107 mEq/L (98-107)
[2020-07-28] MEDS: HYDROCODONE/ACETAMINOPHEN 5/325MG TABLET PO PRN (07:19)
[2020-07-28 08:10] VITALS: BP 180/113
[2020-07-28] MEDS: PANTOPRAZOLE SODIUM 40 MG/VIAL IV SCH (08:45)
[2020-07-28] MEDS: MULTIVITAMINS,THER W-MINERALS TABLET PO SCH (08:45)
[2020-07-28] MEDS: LEVETIRACETAM 500MG/5ML CUP PO SCH (08:45)
[2020-07-28] MEDS: AMLODIPINE 2.5MG TABLET PO SCH (08:45)
[2020-07-28 12:00] VITALS: BP 165/105
[2020-07-28 16:12] VITALS: BP 156/105
[2020-07-28] MEDS ORDERED: HYDR-4001 MT (17:05)
[2020-07-28] MEDS ORDERED: AMLO2.5T45 PO (17:05)
[2020-07-28] MEDS ORDERED: PHEN100C4 PO (17:05)
[2020-07-28 17:09] VITALS: BP 156/105
== END 2020-07-28 18:58 | disposition home or self-care (01) | DRG 58 ==
LOC: ER 09:23 → 6WST 12:03 → ENRESERV 12:38
PROVIDERS: ADMIT Internal Medicine; ATTEND Internal Medicine
DX: I69.398 Other sequelae of cerebral infarction (principal); G40.909 Epilepsy, unspecified, not intractable, without status epilepticus; E87.2 Acidosis; I10 Essential (primary) hypertension; I25.10 Atherosclerotic heart disease of native coronary artery without angina pectoris; Y90.0 Blood alcohol level of less than 20 mg/100 ml; E83.39 Other disorders of phosphorus metabolism; E83.42 Hypomagnesemia; B19.20 Unspecified viral hepatitis C without hepatic coma; F12.90 Cannabis use, unspecified, uncomplicated; I69.314 Frontal lobe and executive function deficit following cerebral infarction; Z95.0 Presence of cardiac pacemaker; Z91.19 Patient's noncompliance with other medical treatment and regimen; Z79.2 Long term (current) use of antibiotics; Z79.899 Other long term (current) drug therapy; N17.0 Acute kidney failure with tubular necrosis
CPT/HCPCS: 36415; 36600; 71045; 73502; 76770; 80048; 80053; 80061; 80185; 80305; 80307; 80320; 80329; 81003; 82375; 82550; 82805; 83605; 83735; 84100; 84439; 84484; 85025; 93005; 93306; 93970; 95816; 96365; 97116; 97162; 99291; C9113; J0456; J0696; J1650; J1953; J2060; J3475; J3490; J7030; J7060; G0480

== ENCOUNTER 2021-02-03 15:24 | Emergency (ER) | payer MEDICARE, OTHER ==
[~2021-02-03] VITALS: Ht 172.7 cm; Wt 78.0 kg
[~2021-02-03 15:24] MED LIST changes: +AMLO2.5T45 PO; -AZIT250T12 MT; +HYDR-4001 MT; -LOSA100T32 MT; +PHEN100C4 PO
[2021-02-03 16:09] LABS: BASOPHILS % 1.9 % (0.0-2.0); HEMATOCRIT. 34.4 % (42.0-52.0); HEMOGLOBIN. 11.2 g/dL (14.0-18.0); LYMPHOCYTES % 13.7 % (20.0-50.0); MEAN CORPUSCULAR HEMOGLOBIN 25.2 pg (28.0-32.0); MEAN CORPUSCULAR VOLUME 77.6 fL (80.0-94.0); MEAN PLATELET VOLUME 7.9 fl (7.4-10.4); MONOCYTES % 13.2 % (2.0-8.0); NEUTROPHILS % 70.2 % (40.0-76.0); PLATELET 167 x1000/uL (130-400); RED BLOOD CELL COUNT 4.44 mill/uL (4.7-6.1); RED CELL DISTRIBUTION WIDTH 14.7 % (11.6-14.6)
[2021-02-03 16:15] LABS: CHLORIDE 112 mEq/L (98-107)
[2021-02-03] MEDS ORDERED: SODIUM CHLORIDE 0.9% 1,000 ML IV ONE (16:45)
[2021-02-03 20:00] LABS: CLARITY URINE CLEAR (CLEAR); COLOR URINE YELLOW (YELLOW); KETONES URINE NEGATIVE (NEGATIVE); LEUKOCYTE ESTERASE URINE NEGATIVE (NEGATIVE); NITRITE URINE NEGATIVE (NEGATIVE); OCCULT BLOOD URINE NEGATIVE (NEGATIVE); PH URINE 6.5 (4.5-8.0); PROTEIN URINE 1+ (NEGATIVE); SPECIFIC GRAVITY URINE 1.019 (1.005-1.030); UROBILINOGEN URINE 0.2 E.U./dL (0.2-1.0)
[2021-02-03] MEDS ORDERED: ACETAMINOPHEN 325MG TABLET PO ONE (20:00)
[2021-02-03 20:43] VITALS: BP 122/96
== END 2021-02-03 20:53 | disposition home or self-care (01) ==
LOC: ER 15:24
DX: R53.1 Weakness (principal); E86.0 Dehydration; I10 Essential (primary) hypertension; Z98.890 Other specified postprocedural states; Z86.59 Personal history of other mental and behavioral disorders
CPT/HCPCS: 36415; 80053; 81003; 84484; 85025; 93005; 99285; J7030; Z7610

== ENCOUNTER 2021-06-08 10:04 | Inpatient (IN) | payer MEDICARE, OTHER ==
[~2021-06-08] VITALS: Ht 165.1 cm; Wt 60.8 kg
[2021-06-08] MEDS ORDERED: SODIUM CHLORIDE 0.9% 1000ML BAG (SEPSIS BOLUS) IV ONE (10:45)
[2021-06-08 11:57] LABS: BASOPHILS % 1.1 % (0.0-2.0); EOSINOPHILS % 0.5 % (0.0-5.0); HEMATOCRIT. 38.6 % (42.0-52.0); HEMOGLOBIN. 12.5 g/dL (14.0-18.0); LYMPHOCYTES % 22.9 % (20.0-50.0); MEAN CORPUSCULAR HEMOGLOBIN 24.9 pg (28.0-32.0); MEAN CORPUSCULAR VOLUME 77.1 fL (80.0-94.0); MEAN PLATELET VOLUME 8.8 fl (7.4-10.4); MONOCYTES % 12.1 % (2.0-8.0); NEUTROPHILS % 63.4 % (40.0-76.0); PLATELET 164 x1000/uL (130-400); RED CELL DISTRIBUTION WIDTH 14.6 % (11.6-14.6)
[2021-06-08 12:04] LABS: CHLORIDE 112 mEq/L (98-107)
[2021-06-08 12:07] LABS: INR 1.1; PROTHROMBIN TIME 11.4 sec (9.6-11.0)
[2021-06-08] MEDS ORDERED: PIPERACILLIN/TAZ 3.375G PREMIX 50 ML IV ONE (12:30)
[2021-06-08] MEDS ORDERED: VANCOMYCIN 1 G PREMIX 200 ML IV ONE (12:30)
[2021-06-08 14:21] LABS: CLARITY URINE CLEAR (CLEAR); COLOR URINE YELLOW (YELLOW); KETONES URINE NEGATIVE (NEGATIVE); LEUKOCYTE ESTERASE URINE NEGATIVE (NEGATIVE); NITRITE URINE NEGATIVE (NEGATIVE); OCCULT BLOOD URINE NEGATIVE (NEGATIVE); PROTEIN URINE 1+ (NEGATIVE); SPECIFIC GRAVITY URINE 1.015 (1.005-1.030); UROBILINOGEN URINE 0.2 E.U./dL (0.2-1.0)
[2021-06-08] MEDS ORDERED: ONDANSETRON HCL 4MG/2ML INJ IV PRN (15:45)
[2021-06-08] MEDS ORDERED: LORAZEPAM 0.5MG TABLET PO PRN (15:45)
[2021-06-08] MEDS ORDERED: IPRATROPIUM/ALBUTEROL 0.5-3(2.5)MG/3ML NEB HHN PRN (15:45)
[2021-06-08] MEDS ORDERED: DOCUSATE SODIUM 100MG CAPSULE PO PRN (15:45)
[2021-06-08] MEDS: LEVETIRACETAM 500MG TABLET PO SCH ×2 (16:00→16:25)
[2021-06-08] MEDS: SODIUM CHLORIDE 0.9% 1,000 ML IV SCH (16:25)
[2021-06-08] MEDS ORDERED: PHENYTOIN SODIUM 300MG in SODIUM CHLORIDE 0.9% 50ML IV NR (19:00)
[2021-06-08] MEDS ORDERED: PHENYTOIN SODIUM EXTENDED 100MG CAPSULE PO SCH (22:00)
[2021-06-08] MEDS ORDERED: PHENYTOIN SODIUM 300MG in SODIUM CHLORIDE 0.9% 50ML IV SCH (23:30)
[2021-06-09 02:22] VITALS: BP 125/90
[2021-06-09 04:00] VITALS: BP 117/82
[2021-06-09] MEDS ORDERED: PHENYTOIN SODIUM 300MG in SODIUM CHLORIDE 0.9% 50ML IV SCH (05:00)
[2021-06-09 06:08] LABS: BASOPHILS % 0.8 % (0.0-2.0); HEMATOCRIT. 35.6 % (42.0-52.0); HEMOGLOBIN. 11.5 g/dL (14.0-18.0); LYMPHOCYTES % 24.6 % (20.0-50.0); MEAN CORPUSCULAR HEMOGLOBIN 24.6 pg (28.0-32.0); MEAN CORPUSCULAR VOLUME 75.7 fL (80.0-94.0); MEAN PLATELET VOLUME 8.6 fl (7.4-10.4); MONOCYTES % 8.9 % (2.0-8.0); NEUTROPHILS % 64.7 % (40.0-76.0); PLATELET 190 x1000/uL (130-400); RED CELL DISTRIBUTION WIDTH 14.6 % (11.6-14.6)
[2021-06-09 06:10] LABS: CHLORIDE 116 mEq/L (98-107)
[2021-06-09 08:00] VITALS: BP 132/90
[2021-06-09] MEDS ORDERED: POTASSIUM CHLORIDE 20MEQ TABLET SR PO SCH (08:15)
[2021-06-09] MEDS: LEVETIRACETAM 500MG TABLET PO SCH ×2 (09:49→20:34)
[2021-06-09] MEDS ORDERED: KCL 20MEQ/100ML PREMIX 100 ML IV SCH (10:00)
[2021-06-09] MEDS ORDERED: MAGNESIUM 4 G PREMIX 100 ML IV SCH (10:00)
[2021-06-09 12:00] VITALS: BP 133/87
[2021-06-09] MEDS: SODIUM CHLORIDE 0.9% 1,000 ML IV SCH (13:03)
[2021-06-09] MEDS ORDERED: POTASSIUM CHLORIDE 20MEQ TABLET SR PO NR (13:45)
[2021-06-09] MEDS ORDERED: NALOXONE HCL 0.4MG/ML VIAL IV PRN (13:45)
[2021-06-09 16:00] VITALS: BP 134/91
[2021-06-09 20:00] VITALS: BP 140/91
[2021-06-10] VITALS: BP 136/88
[2021-06-10 04:00] VITALS: BP 127/93
[2021-06-10] MEDS: SODIUM CHLORIDE 0.9% 1,000 ML IV SCH (08:18)
[2021-06-10] MEDS: LEVETIRACETAM 500MG TABLET PO SCH ×2 (08:18→20:30)
[2021-06-10 09:10] VITALS: BP_SYST 115; BP_SYST 119; BP_SYST 120; BP_DIAS 79; BP_DIAS 81; BP_DIAS 85
[2021-06-10 12:00] VITALS: BP 114/86
[2021-06-10 16:00] VITALS: BP 139/93
[2021-06-10 16:57] LABS: CHLORIDE 113 mEq/L (98-107)
[2021-06-10 20:42] VITALS: BP 137/85
[2021-06-11 00:20] VITALS: BP 126/84
[2021-06-11 04:00] VITALS: BP 128/86
[2021-06-11] MEDS: SODIUM CHLORIDE 0.9% 1,000 ML IV SCH (04:20)
[2021-06-11 08:00] VITALS: BP 121/96
[2021-06-11] MEDS: LEVETIRACETAM 500MG TABLET PO SCH ×2 (08:31→20:27)
[2021-06-11 10:15] LABS: CHLORIDE 114 mEq/L (98-107)
[2021-06-11 12:00] VITALS: BP 118/81
[2021-06-11] MEDS ORDERED: POTASSIUM CHLORIDE 20MEQ TABLET SR PO SCH (13:15)
[2021-06-11 16:00] VITALS: BP 148/91
[2021-06-11 20:00] VITALS: BP 147/95
[2021-06-12] VITALS: BP 131/87
[2021-06-12 04:00] VITALS: BP 129/85
[2021-06-12] MEDS: LEVETIRACETAM 500MG TABLET PO SCH ×2 (08:48→21:10)
[2021-06-12 12:00] VITALS: BP 117/91
[2021-06-12 16:00] VITALS: BP 125/88
[2021-06-12 20:00] VITALS: BP 124/77
[2021-06-13] VITALS: BP 128/82
[2021-06-13 04:00] VITALS: BP 117/79
[2021-06-13] MEDS: HYDROCODONE/ACETAMINOPHEN 5/325MG TABLET PO PRN ×2 (04:39→08:58)
[2021-06-13 08:00] VITALS: BP 125/81
[2021-06-13] MEDS: LEVETIRACETAM 500MG TABLET PO SCH ×2 (08:58→20:21)
[2021-06-13 09:45] LABS: BASOPHILS % 0.4 % (0.0-2.0); EOSINOPHILS % 0.7 % (0.0-5.0); HEMATOCRIT. 33.1 % (42.0-52.0); HEMOGLOBIN. 10.9 g/dL (14.0-18.0); LYMPHOCYTES % 12.8 % (20.0-50.0); MEAN CORPUSCULAR HEMOGLOBIN 25.3 pg (28.0-32.0); MEAN CORPUSCULAR VOLUME 76.9 fL (80.0-94.0); MEAN PLATELET VOLUME 8.6 fl (7.4-10.4); MONOCYTES % 9.1 % (2.0-8.0); PLATELET 200 x1000/uL (130-400); RED BLOOD CELL COUNT 4.31 mill/uL (4.7-6.1); RED CELL DISTRIBUTION WIDTH 14.5 % (11.6-14.6)
[2021-06-13 09:55] LABS: CHLORIDE 108 mEq/L (98-107)
[2021-06-13] MEDS: ACETAMINOPHEN 325MG TABLET PO PRN ×2 (11:33→18:56)
[2021-06-13 11:49] VITALS: BP 157/95
[2021-06-13] MEDS ORDERED: POTASSIUM CHLORIDE 20MEQ TABLET SR PO NR (14:15)
[2021-06-13 16:00] VITALS: BP 131/85
[2021-06-13 20:00] VITALS: BP 138/82
[2021-06-14] VITALS: BP 134/77
[2021-06-14 04:00] VITALS: BP 144/81
[2021-06-14] MEDS: POTASSIUM CHLORIDE 20MEQ TABLET SR PO SCH (07:55)
[2021-06-14] MEDS: LEVETIRACETAM 500MG TABLET PO SCH ×2 (07:55→20:35)
[2021-06-14 08:00] VITALS: BP 120/74
[2021-06-14] MEDS: ACETAMINOPHEN 325MG TABLET PO PRN ×3 (08:02→20:35)
[2021-06-14 12:00] VITALS: BP 152/89
[2021-06-14 16:00] VITALS: BP 160/87
[2021-06-14 20:00] VITALS: BP 147/82
[2021-06-15] VITALS: BP 154/77
[2021-06-15 04:00] VITALS: BP 132/73
[2021-06-15 08:00] VITALS: BP 140/81
[2021-06-15] MEDS: LEVETIRACETAM 500MG TABLET PO SCH ×2 (08:35→20:47)
[2021-06-15] MEDS: POTASSIUM CHLORIDE 20MEQ TABLET SR PO SCH (08:35)
[2021-06-15] MEDS: ACETAMINOPHEN 325MG TABLET PO PRN ×2 (08:43→20:47)
[2021-06-15 12:00] VITALS: BP 114/76
[2021-06-15 16:00] VITALS: BP 120/66
[2021-06-15 20:00] VITALS: BP 121/64
[2021-06-16] VITALS: BP 117/81
[2021-06-16 04:00] VITALS: BP 124/72
[2021-06-16 08:00] VITALS: BP 142/84
[2021-06-16] MEDS: LEVETIRACETAM 500MG TABLET PO SCH ×2 (08:21→20:37)
[2021-06-16] MEDS: POTASSIUM CHLORIDE 20MEQ TABLET SR PO SCH (08:21)
[2021-06-16] MEDS: ACETAMINOPHEN 325MG TABLET PO PRN ×2 (08:22→20:44)
[2021-06-16 12:00] VITALS: BP 122/72
[2021-06-16 16:00] VITALS: BP 120/65
[2021-06-16 20:00] VITALS: BP 156/94
[2021-06-17 02:13] VITALS: BP 168/95
[2021-06-17] MEDS: ACETAMINOPHEN 325MG TABLET PO PRN ×3 (03:03→15:09)
[2021-06-17] MEDS: CLONIDINE 0.1MG TABLET PO PRN (03:04)
[2021-06-17 04:38] VITALS: BP 131/82
[2021-06-17] MEDS ORDERED: NALOXONE HCL 0.4MG/ML VIAL IV PRN (05:30)
[2021-06-17] MEDS: POTASSIUM CHLORIDE 20MEQ TABLET SR PO SCH (09:29)
[2021-06-17] MEDS: LEVETIRACETAM 500MG TABLET PO SCH ×2 (09:31→21:13)
[2021-06-17] MEDS: HYDROCODONE/ACETAMINOPHEN 5/325MG TABLET PO PRN ×3 (09:36→22:42)
[2021-06-17 20:54] VITALS: BP 114/79
[2021-06-18 04:00] VITALS: BP 140/91
[2021-06-18] MEDS: HYDROCODONE/ACETAMINOPHEN 5/325MG TABLET PO PRN ×3 (06:13→18:36)
[2021-06-18 08:00] VITALS: BP 133/83
[2021-06-18] MEDS: LEVETIRACETAM 500MG TABLET PO SCH ×2 (09:12→21:18)
[2021-06-18] MEDS: POTASSIUM CHLORIDE 20MEQ TABLET SR PO SCH (09:13)
[2021-06-18 12:00] VITALS: BP 149/81
[2021-06-18 16:00] VITALS: BP 151/92
[2021-06-18 20:00] VITALS: BP 132/85
[2021-06-19] VITALS: BP 136/74
[2021-06-19] MEDS: HYDROCODONE/ACETAMINOPHEN 5/325MG TABLET PO PRN ×3 (01:16→16:44)
[2021-06-19 04:00] VITALS: BP 144/93
[2021-06-19] MEDS: CLONIDINE 0.1MG TABLET PO PRN (06:45)
[2021-06-19 08:00] VITALS: BP 159/98
[2021-06-19] MEDS: POTASSIUM CHLORIDE 20MEQ TABLET SR PO SCH (09:15)
[2021-06-19] MEDS: LEVETIRACETAM 500MG TABLET PO SCH ×2 (09:15→20:35)
[2021-06-19 12:00] VITALS: BP 156/92
[2021-06-19 16:00] VITALS: BP 113/89
[2021-06-19 20:00] VITALS: BP 168/95
[2021-06-20] VITALS: BP 163/91
[2021-06-20] MEDS: ACETAMINOPHEN 325MG TABLET PO PRN ×2 (00:46→20:40)
[2021-06-20] MEDS: CLONIDINE 0.1MG TABLET PO PRN ×2 (00:46→20:39)
[2021-06-20 04:00] VITALS: BP 150/86
[2021-06-20 08:00] VITALS: BP 149/92
[2021-06-20] MEDS: POTASSIUM CHLORIDE 20MEQ TABLET SR PO SCH (08:45)
[2021-06-20] MEDS: LEVETIRACETAM 500MG TABLET PO SCH ×2 (08:45→20:39)
[2021-06-20] MEDS: HYDROCODONE/ACETAMINOPHEN 5/325MG TABLET PO PRN ×2 (08:46→20:42)
[2021-06-20 12:00] VITALS: BP 127/81
[2021-06-20 16:00] VITALS: BP 149/90
[2021-06-20 20:00] VITALS: BP 169/73
[2021-06-21] VITALS: BP 108/75
[2021-06-21 04:00] VITALS: BP 154/92
[2021-06-21 08:14] LABS: BASOPHILS % 0.9 % (0.0-2.0); EOSINOPHILS % 0.9 % (0.0-5.0); HEMOGLOBIN. 9.8 g/dL (14.0-18.0); LYMPHOCYTES % 10.9 % (20.0-50.0); MEAN CORPUSCULAR HEMOGLOBIN 25.1 pg (28.0-32.0); MEAN CORPUSCULAR VOLUME 77.1 fL (80.0-94.0); MEAN PLATELET VOLUME 8.5 fl (7.4-10.4); MONOCYTES % 12.4 % (2.0-8.0); NEUTROPHILS % 74.9 % (40.0-76.0); PLATELET 296 x1000/uL (130-400); RED BLOOD CELL COUNT 3.89 mill/uL (4.7-6.1); RED CELL DISTRIBUTION WIDTH 13.3 % (11.6-14.6)
[2021-06-21 08:41] LABS: CHLORIDE 109 mEq/L (98-107)
[2021-06-21] MEDS: HYDROCODONE/ACETAMINOPHEN 5/325MG TABLET PO PRN ×2 (09:50→23:17)
[2021-06-21] MEDS: POTASSIUM CHLORIDE 20MEQ TABLET SR PO SCH (09:51)
[2021-06-21] MEDS: LEVETIRACETAM 500MG TABLET PO SCH ×2 (09:51→20:33)
[2021-06-21 13:35] VITALS: BP 148/87
[2021-06-21 16:00] VITALS: BP 136/76
[2021-06-21] MEDS: ACETAMINOPHEN 500MG TABLET PO PRN (19:14)
[2021-06-21 20:00] VITALS: BP 113/74
[2021-06-22] VITALS: BP 130/80
[2021-06-22 04:00] VITALS: BP 149/95
[2021-06-22] MEDS: CLONIDINE 0.1MG TABLET PO PRN (04:39)
[2021-06-22] MEDS: LEVETIRACETAM 500MG TABLET PO SCH ×2 (09:16→20:35)
[2021-06-22] MEDS: POTASSIUM CHLORIDE 20MEQ TABLET SR PO SCH (09:16)
[2021-06-22] MEDS: ACETAMINOPHEN 500MG TABLET PO PRN (18:16)
[2021-06-22 20:00] VITALS: BP 116/70
[2021-06-23 00:05] VITALS: BP 121/69
[2021-06-23 04:02] VITALS: BP 117/72
[2021-06-23] MEDS: ACETAMINOPHEN 500MG TABLET PO PRN ×2 (04:45→16:01)
[2021-06-23 08:00] VITALS: BP 125/80
[2021-06-23] MEDS: POTASSIUM CHLORIDE 20MEQ TABLET SR PO SCH (09:00)
[2021-06-23] MEDS: LEVETIRACETAM 500MG TABLET PO SCH ×2 (09:23→20:16)
[2021-06-23] MEDS: ACETAMINOPHEN 325MG TABLET PO PRN ×2 (09:23→20:16)
[2021-06-23 12:00] VITALS: BP 136/84
[2021-06-23 16:00] VITALS: BP 152/92
[2021-06-23 16:43] LABS: BASOPHILS % 0.6 % (0.0-2.0); EOSINOPHILS % 0.6 % (0.0-5.0); HEMATOCRIT. 28.5 % (42.0-52.0); HEMOGLOBIN. 9.5 g/dL (14.0-18.0); LYMPHOCYTES % 9.4 % (20.0-50.0); MEAN CORPUSCULAR HEMOGLOBIN 24.9 pg (28.0-32.0); MEAN PLATELET VOLUME 7.5 fl (7.4-10.4); MONOCYTES % 10.7 % (2.0-8.0); NEUTROPHILS % 78.7 % (40.0-76.0); PLATELET 347 x1000/uL (130-400); RED CELL DISTRIBUTION WIDTH 13.7 % (11.6-14.6)
[2021-06-23 20:00] VITALS: BP 145/80
[2021-06-24] VITALS: BP 136/78
[2021-06-24] MEDS: ACETAMINOPHEN 500MG TABLET PO PRN ×2 (00:46→13:22)
[2021-06-24 04:00] VITALS: BP 140/81
[2021-06-24 08:00] VITALS: BP 125/76
[2021-06-24] MEDS: LEVETIRACETAM 500MG TABLET PO SCH ×2 (09:18→20:18)
[2021-06-24] MEDS: POTASSIUM CHLORIDE 20MEQ TABLET SR PO SCH (09:18)
[2021-06-24] MEDS: HYDROCODONE/ACETAMINOPHEN 5/325MG TABLET PO PRN (09:23)
[2021-06-24 13:00] VITALS: BP 123/71
[2021-06-24 16:00] VITALS: BP 126/74
[2021-06-24] MEDS: HYDROCODONE/ACETAMINOPHEN 10/325MG TABLET PO PRN (18:29)
[2021-06-24 20:00] VITALS: BP 123/77
[2021-06-24] MEDS: MORPHINE SULFATE 2 MG/ML CPJ (NOT FOR IM USE) IV PRN (21:39)
[2021-06-24] MEDS ORDERED: IOHEXOL-300 100 ML BOTTLE ONE (22:23)
[2021-06-24] MEDS ORDERED: NALOXONE HCL 0.4MG/ML VIAL IV PRN (22:45)
[2021-06-25] VITALS: BP 158/92
[2021-06-25] MEDS: HYDROCODONE/ACETAMINOPHEN 10/325MG TABLET PO PRN ×3 (00:32→15:20)
[2021-06-25 04:00] VITALS: BP 132/93
[2021-06-25] MEDS: MORPHINE SULFATE 2 MG/ML CPJ (NOT FOR IM USE) IV PRN ×3 (05:10→20:22)
[2021-06-25 08:00] VITALS: BP 128/76
[2021-06-25] MEDS: POTASSIUM CHLORIDE 20MEQ TABLET SR PO SCH (08:44)
[2021-06-25] MEDS: LEVETIRACETAM 500MG TABLET PO SCH ×2 (08:45→20:22)
[2021-06-25 12:00] VITALS: BP 143/85
[2021-06-25 16:00] VITALS: BP 170/104
[2021-06-25 20:00] VITALS: BP 157/91
[2021-06-25] MEDS: ACETAMINOPHEN 325MG TABLET PO PRN (20:23)
[2021-06-26] VITALS: BP 182/95
[2021-06-26] MEDS: CLONIDINE 0.1MG TABLET PO PRN ×2 (01:03→09:00)
[2021-06-26] MEDS: MORPHINE SULFATE 2 MG/ML CPJ (NOT FOR IM USE) IV PRN (01:03)
[2021-06-26 08:00] VITALS: BP_SYST 134; BP_SYST 145; BP_DIAS 88; BP_DIAS 91
[2021-06-26] MEDS: LEVETIRACETAM 500MG TABLET PO SCH ×2 (08:59→21:03)
[2021-06-26] MEDS: POTASSIUM CHLORIDE 20MEQ TABLET SR PO SCH (08:59)
[2021-06-26] MEDS: HYDROCODONE/ACETAMINOPHEN 10/325MG TABLET PO PRN (08:59)
[2021-06-26 12:00] VITALS: BP 134/88
[2021-06-26 16:00] VITALS: BP 141/89
[2021-06-26] MEDS: IBUPROFEN 400MG TABLET PO SCH ×2 (17:30→21:04)
[2021-06-26 20:00] VITALS: BP 133/84
[2021-06-27 04:00] VITALS: BP 153/96
[2021-06-27] MEDS: IBUPROFEN 400MG TABLET PO SCH ×4 (04:28→21:15)
[2021-06-27 07:05] LABS: BASOPHILS % 1.1 % (0.0-2.0); EOSINOPHILS % 2.4 % (0.0-5.0); HEMATOCRIT. 28.7 % (42.0-52.0); HEMOGLOBIN. 9.4 g/dL (14.0-18.0); LYMPHOCYTES % 15.5 % (20.0-50.0); MEAN CORPUSCULAR HEMOGLOBIN 24.9 pg (28.0-32.0); MEAN CORPUSCULAR VOLUME 76.1 fL (80.0-94.0); MEAN PLATELET VOLUME 7.6 fl (7.4-10.4); MONOCYTES % 12.2 % (2.0-8.0); NEUTROPHILS % 68.8 % (40.0-76.0); PLATELET 389 x1000/uL (130-400); RED BLOOD CELL COUNT 3.77 mill/uL (4.7-6.1); RED CELL DISTRIBUTION WIDTH 13.7 % (11.6-14.6)
[2021-06-27 07:25] LABS: CHLORIDE 109 mEq/L (98-107)
[2021-06-27 08:00] VITALS: BP 158/93
[2021-06-27] MEDS: POTASSIUM CHLORIDE 20MEQ TABLET SR PO SCH (09:10)
[2021-06-27] MEDS: LEVETIRACETAM 500MG TABLET PO SCH ×2 (09:10→21:15)
[2021-06-27] MEDS: CLONIDINE 0.1MG TABLET PO PRN (09:11)
[2021-06-27 12:00] VITALS: BP 138/90
[2021-06-27] MEDS: HYDROCODONE/ACETAMINOPHEN 5/325MG TABLET PO PRN (13:24)
[2021-06-27 16:00] VITALS: BP 136/88
[2021-06-27] MEDS: HYDROCODONE/ACETAMINOPHEN 10/325MG TABLET PO PRN (18:46)
[2021-06-27 20:00] VITALS: BP 150/80
[2021-06-28 04:00] VITALS: BP 151/95
[2021-06-28] MEDS: IBUPROFEN 400MG TABLET PO SCH ×4 (04:35→20:42)
[2021-06-28 08:00] VITALS: BP 165/97
[2021-06-28] MEDS: POTASSIUM CHLORIDE 20MEQ TABLET SR PO SCH (09:42)
[2021-06-28] MEDS: LEVETIRACETAM 500MG TABLET PO SCH ×2 (09:42→20:42)
[2021-06-28] MEDS: CLONIDINE 0.1MG TABLET PO PRN ×2 (09:43→20:44)
[2021-06-28 12:00] VITALS: BP 125/80
[2021-06-28 16:00] VITALS: BP 129/85
[2021-06-28] MEDS: HYDROCODONE/ACETAMINOPHEN 10/325MG TABLET PO PRN (18:19)
[2021-06-28 20:00] VITALS: BP 162/92
[2021-06-29 00:32] VITALS: BP 143/7
[2021-06-29] MEDS: IBUPROFEN 400MG TABLET PO SCH ×3 (03:30→15:30)
[2021-06-29 04:34] VITALS: BP 154/99
[2021-06-29] MEDS: LEVETIRACETAM 500MG TABLET PO SCH (09:19)
[2021-06-29] MEDS: POTASSIUM CHLORIDE 20MEQ TABLET SR PO SCH (09:19)
[2021-06-29] MEDS: HYDROCODONE/ACETAMINOPHEN 10/325MG TABLET PO PRN (12:53)
[2021-06-29] MEDS ORDERED: FAMO20TA8 MT (13:47)
[2021-06-29] MEDS ORDERED: HYDR-4001 MT (13:47)
[2021-06-29] MEDS ORDERED: KEPP500 MT (13:47)
[2021-06-29] MEDS ORDERED: PHEN100C4 PO (13:47)
[2021-06-29] MEDS ORDERED: AMLO2.5T45 PO (13:47)
[2021-06-29] MEDS ORDERED: COLC0.6C3 MT (13:47)
[2021-06-29] MEDS ORDERED: TOPUD MT (13:47)
[2021-06-29] MEDS ORDERED: IBUP-2437 MT (13:47)
[2021-06-29] MEDS ORDERED: PHENYTOIN SODIUM 300MG in SODIUM CHLORIDE 0.9% 50ML IV SCH (14:00)
[2021-06-29] MEDS ORDERED: SODIUM CHLORIDE 0.9% IV NR (14:00)
[2021-06-29] MEDS ORDERED: PHENYTOIN SODIUM IV NR (14:00)
[2021-06-29 15:38] VITALS: BP 124/87
== END 2021-06-29 18:30 | disposition home or self-care (01) | DRG 720 ==
LOC: ER 10:04 → 7WST 12:43 → EDBEDREQ 13:04 → EDBEDREQSVC 13:04 → ENRESERV 22:16 → 6EST 06-17 00:50 → 7WST 06-22 17:01 → 6EST 06-25 22:59
PROVIDERS: ADMIT Internal Medicine; ATTEND Internal Medicine
PROC: 4B02XSZ Measurement of Cardiac Pacemaker, External Approach (ICD-10-PCS; principal; 2021-06-10)
DX: A41.89 Other specified sepsis (principal); J12.82 Pneumonia due to coronavirus disease 2019; U07.1 COVID-19; J44.0 Chronic obstructive pulmonary disease with (acute) lower respiratory infection; I27.20 Pulmonary hypertension, unspecified; I42.9 Cardiomyopathy, unspecified; G40.909 Epilepsy, unspecified, not intractable, without status epilepticus; I48.91 Unspecified atrial fibrillation; D50.9 Iron deficiency anemia, unspecified; I10 Essential (primary) hypertension; M11.231 Other chondrocalcinosis, right wrist; G89.29 Other chronic pain; R09.02 Hypoxemia; M19.90 Unspecified osteoarthritis, unspecified site; I25.10 Atherosclerotic heart disease of native coronary artery without angina pectoris; M19.011 Primary osteoarthritis, right shoulder; E83.42 Hypomagnesemia; M10.9 Gout, unspecified; M25.851 Other specified joint disorders, right hip; E87.6 Hypokalemia; I08.1 Rheumatic disorders of both mitral and tricuspid valves; Z86.73 Personal history of transient ischemic attack (TIA), and cerebral infarction without residual deficits; Z91.19 Patient's noncompliance with other medical treatment and regimen; Z95.0 Presence of cardiac pacemaker; Z59.0 Homelessness; Z79.899 Other long term (current) drug therapy; M24.851 Other specific joint derangements of right hip, not elsewhere classified
CPT/HCPCS: 36415; 71045; 73030; 73110; 73200; 73201; 73502; 80048; 80053; 80185; 81003; 83605; 83735; 84145; 84484; 85025; 86140; 87426; 93005; 93306; 99285; J1165; J2270; J2543; J3370; J3475; J3480; J7030; J7050; Q9967